=== PATIENT | male | born 1940 | race Caucasian/White ===

== ENCOUNTER 2019-01-03 07:20 | Outpatient (CLI) | payer MEDICARE, OTHER ==
[2019-01-03 07:41] LABS: BILIRUBIN,URINE NEGATIVE (NEGATIVE); GLUCOSE, URINE (UA) NEGATIVE (NEGATIVE); KETONES,URINE (UA) NEGATIVE (NEGATIVE); LEUKOCYTE ESTERASE, URINE NEGATIVE (NEGATIVE); NITRITE,URINE NEGATIVE (NEGATIVE); OCCULT BLOOD,URINE MODERATE (NEGATIVE); PH,URINE 5.5 PH (5.0-7.5); PROTEIN,URINE NEGATIVE (NEGATIVE); UROBILINOGEN,URINE 0.2 (NORMAL) E.U./dL (NORMAL)
[2019-01-03 07:43] LABS: BASOPHILS % (AUTO) 0.5 %; EOSINOPHILS # (AUTO) 0.4 10^3/uL (0.0-0.7); EOSINOPHILS % (AUTO) 7.7 %; HGB - HEMOGLOBIN 14.3 g/dL (14.0-18.0); LYMPHOCYTES % (AUTO) 18.6 %; MEAN CORPUSCULAR HEMOGLOBIN 31.4 pg (27.0-31.0); MEAN CORPUSCULAR HGB CONC 31.6 g/dL (32.0-36.0); MEAN CORPUSCULAR VOLUME 99.3 fL (80.0-94.0); MEAN PLATELET VOLUME 9.3 fL (7.4-11.4); MONOCYTES # (AUTO) 0.6 10^3/uL (0.0-1.0); MONOCYTES % (AUTO) 10.4 %; NEUTROPHILS # (AUTO) 3.4 10^3/uL (1.5-6.6); NEUTROPHILS % (AUTO) 62.3 %; PLT - PLATELET COUNT 190 10^3/uL (130-450); RED BLOOD COUNT 4.55 10^6/uL (4.70-6.10); RED CELL DISTRIBUTION WIDTH 12.7 % (12.0-15.0); WHITE BLOOD COUNT 5.5 x10^3/uL (4.8-10.8)
[2019-01-03 07:45] LABS: CLARITY,URINE CLEAR (CLEAR)
[2019-01-03 07:50] LABS: BACTERIA,URINE Rare /HPF (None Seen); RBC,URINE 0-5 /HPF (0-5); SQUAMOUS EPITHELIAL CELL,UR RARE Squamous (<= Few)
[2019-01-03 08:11] LABS: ALBUMIN 4.4 g/dL (3.2-5.5); ALBUMIN/GLOBULIN RATIO 1.5 (1.0-2.2); CALCIUM 9.3 mg/dL (8.5-10.3); CREATININE 0.8 mg/dL (0.6-1.2); TOTAL PROTEIN 7.4 g/dL (6.7-8.2)
== END 2019-01-03 07:21 | disposition home or self-care (01) ==
LOC: LAB 07:20
PROVIDERS: ATTEND Internal Medicine Gastroenterology
DX: I10 Essential (primary) hypertension (principal); I25.10 Atherosclerotic heart disease of native coronary artery without angina pectoris; N40.1 Benign prostatic hyperplasia with lower urinary tract symptoms; N13.8 Other obstructive and reflux uropathy
CPT/HCPCS: 36415; 80053; 81001; 85025

== ENCOUNTER 2019-01-09 10:23 | Day surgery (SDC) | payer MEDICARE, OTHER ==
[~2019-01-09 10:23] MED LIST: CEFAZOLIN SODIUM IN 0.9 % NACL 2 GM/100 ML BAG IV ONE
[2019-01-09] MEDS ORDERED: ceFAZolin 1 GM VIAL ONE (11:02)
[2019-01-09] MEDS ORDERED: BUPIVACAINE 0.5%-EPI 1:200000 PF 10 ML VIAL ONE (11:02)
[2019-01-09] MEDS ORDERED: LIDOCAINE 1% 50 ML MDV ONE (11:02)
--- NOTE | 2019-01-09 11:02 | ANESTHESIA ---
Pre-Anesthesia VS, & Labs - Diagnosis right inguinal hernia repair - Procedure right open inguinal hernia repair with mesh Vital Signs: Temp Pulse Resp BP Pulse Ox 36.3 C L 75 18 153/90 H 98 01/09/19 10:49 01/09/19 10:49 01/09/19 10:49 01/09/19 10:49 01/09/19 10:49 Height 5 ft 11 in Weight (kg) 69 kg Body Mass Index 21.5 - NPO >8 hours Home Medications and Allergies Home Medications: Ambulatory Orders Acetaminophen [Tylenol Arthritis] 650 mg PO QPM 01/03/19 Carvedilol 6.25 mg PO BID 01/03/19 Fluticasone Propionate [Flovent Diskus] 50 mcg IH ONCE PRN 01/03/19 Furosemide 10 mg PO DAILY 01/03/19 Rosuvastatin Calcium 10 mg PO DAILY 01/03/19 Temazepam 15 mg PO QPM PRN 01/03/19 Ubidecarenone/Vit E Acetate [Co Q-10 100 mg Softgel] 1 each PO DAILY 01/03/19 oxyCODONE [Roxicodone] 5 mg PO Q4-6H PRN 01/03/19 Atenolol [Tenormin] 25 mg PO DAILY 11/05/13 Finasteride 5 mg PO DAILY 11/05/13 Tamsulosin [Flomax] 0.4 mg PO DAILY 11/05/13 Aspirin [Adult Low Dose Aspirin EC] 81 mg PO DAILY 07/24/15 Lisinopril 2.5 mg PO DAILY 09/09/15 Acetaminophen [Tylenol Arthritis] 650 mg PO QPM 01/03/19 Carvedilol 6.25 mg PO BID 01/03/19 Fluticasone Propionate [Flovent Diskus] 50 mcg IH ONCE PRN 01/03/19 Furosemide 10 mg PO DAILY 01/03/19 Rosuvastatin Calcium 10 mg PO DAILY 01/03/19 Temazepam 15 mg PO QPM PRN 01/03/19 Ubidecarenone/Vit E Acetate [Co Q-10 100 mg Softgel] 1 each PO DAILY 01/03/19 oxyCODONE [Roxicodone] 5 mg PO Q4-6H PRN 01/03/19 Allergies/Adverse Reactions: Allergies Allergy/AdvReac Type Severity Reaction Status Date / Time oxycodone AdvReac Mild Itching Verified 01/03/19 07:13 hydrocodone bitartrate * AdvReac Itching Verified 01/03/19 07:13 [From Vicodin] Anes History & Medical History - Anesthetic History Anesthesia Complications: reports: No previous complications - Medical History Cardiovascular: reports: Hypertension, High cholesterol, [place] Pulmonary: reports: COPD, Shortness of breath Gastrointestinal: reports: GERD, GI bleed, Colon polyps, Other Urinary: reports: Benign prostate hypertrophy, Nocturia Neuro: reports: Other (post polio syndrome) Musculoskeletal: reports: Osteoarthritis, Chronic back pain Endocrine/Autoimmune: reports: None Blood Disorders: reports: Anemia Skin: reports: None Smoking Status: Former smoker - Surgical History General: Colonoscopy, EGD, Other Eyes Ears Nose Throat (EENT): Tonsil/Adenoidectomy, Other Cardiothoracic: Coronary stent Orthopedic: Other Exam General: Alert Dental: Poor dentition Mouth Opening: Greater than 4 Fingerbreadths Mallampati classification: II Respiratory: Lungs clear Cardiovascular: Regular rate, Normal S1, Normal S2 Plan Anesthesia Type: Total IV Consent for Procedure(s) Verified and Reviewed: Yes Code Status: Attempt Resuscitation ASA classification: 3-Severe systemic disease Is this case an emergency?: Yes
[2019-01-09] MEDS ORDERED: LACTATED RINGERS 1,000 ML IV ONE ×2 (11:07→13:53)
[2019-01-09] MEDS ORDERED: MIDAZOLAM 2 MG/2 ML VIAL IVP ONE (11:13)
[2019-01-09] MEDS ORDERED: PROPOFOL 200 MG/20 ML VIAL IVP ONE (11:13)
[2019-01-09] MEDS ORDERED: fentaNYL 100 MCG/2 ML VIAL IVP ONE (11:13)
[2019-01-09] MEDS ORDERED: KETAMINE 500 MG/10 ML VIAL IVP ONE (11:13)
[2019-01-09] MEDS ORDERED: LIDOCAINE-MPF 2% 5 ML VIAL IM ONE (11:13)
[2019-01-09] MEDS ORDERED: ACETAMINOPHEN 325 MG TABLET PO PRN (13:13)
[2019-01-09] MEDS ORDERED: IBUPROFEN 600 MG TABLET PO PRN (13:13)
[2019-01-09] MEDS ORDERED: ONDANSETRON 4 MG/2 ML VIAL IVP PRN (13:13)
[2019-01-09] MEDS ORDERED: oxyCODONE 5 MG TABLET PO PRN (13:13)
[2019-01-09] MEDS ORDERED: ACETAMINOPHEN 1,000 MG/100 ML 100 ML IV ONE ×2 (13:17→13:35)
[2019-01-09] MEDS ORDERED: oxyCODONE 5 MG TABLET ONE (13:40)
[2019-01-09 13:56] VITALS: BP 131/88
--- NOTE | 2019-01-09 16:32 | OPERATIVE REPORT ---
DATE OF SERVICE: 01/09/2019 Physician: Phu Branham MD PREOPERATIVE DIAGNOSIS: Symptomatic recurrent right inguinal hernia. POSTOPERATIVE DIAGNOSIS: Symptomatic recurrent right inguinal hernia, indirect. PROCEDURE PERFORMED: Open repair of symptomatic recurrent right inguinal hernia with polypropylene m esh. ANESTHESIA: Local plus monitored anesthesia care by Sly Crook CRNA. SURGEON: Phu Branham MD ESTIMATED BLOOD LOSS: 25 mL COMPLICATIONS: None. FINDINGS: A large recurrent indirect right inguinal hernia was identified. There was no evidence of direct or femoral hernia. A Covidien plug and patch polypropylene mesh was used for the reconstruct ion. INDICATIONS: Patient is a 78-year-old gentleman with an increasingly painful and enlarging right cristi in bulge. He has a remote history of prior open right inguinal hernia repair with mesh. Examination revealed a large reducible and recurrent right inguinal hernia. Because of multiple medical comorbi dities, he was advised to undergo repair of his recurrent right inguinal hernia using local anesthesi a plus monitored anesthesia care. TECHNIQUE: After informed consent, the patient was taken to the operating room where he was sedated and monitored. Preoperative preparation included administration of 2 grams cefazolin intravenously w ithin an hour of the incision and application of sequential calf compression boots. His right groin had been clipped in the ASU and was prepared with iodoform solution, following which a right groin bl ock was instituted using a 50:50 combination of 1% lidocaine plain and 0.5% Marcaine with epinephrine . A total of 30 mL of the mixture was used. The patient's right groin was re-prepared with ChloraPr ep solution and draped in the usual sterile fashion. The patient's previous right inguinal herniorrh aphy surgical scar was reopened by making a transverse incision in the skin lines, beginning just abo ve the pubic tubercle and extending laterally approximately 5 cm. Hemostasis achieved with electroca utery and 2-0 silk ties. Incision carried down through subcutaneous tissues until the external obliq ue aponeurosis was identified and exposed, identifying the external ring. The external oblique apone urosis was then incised along the lines of its fibers in such a manner as to open the external ring a nd expose the internal ring. Extensive scarring was present within the inguinal canal. The cord str uctures were mobilized and encircled with a Christiano drain. The ilioinguinal nerve was not clearly id entified during the dissection. The large hernia sac was identified and was dissected free from surr ounding cord structures to the level of the internal ring. The hernia sac was opened and a finger in serted in the peritoneal cavity. A search for direct and femoral hernias made and none was identifie d. The sac was twisted and triply highly ligated with 2-0 silk suture ligatures. Excess hernia sac was amputated and discarded. After hemostasis was assured and the wound irrigated with antibiotic so lution containing 1 gram of Ancef per liter, A [employer] polypropylene plug and patch system was broug ht onto the field, soaked in the antibiotic solution. The plug was placed into the internal ring and secured in place with interrupted 3-0 Prolene sutures. The patch was then placed over the inguinal floor. The tail was wrapped around the cord at the level of the internal ring and was secured in michele ce with continuous 3-0 Prolene sutures, securing the patch to the shelving edge of Poupart's ligament inferiorly, to the internal oblique aponeurosis superolaterally and to the lateral border of the rec tus sheath medially. Care was taken to avoid excessive tightening of the patch around the cord struc tures at the level of the internal ring. Again, after hemostasis had been assured, the wound was irr igated with antibiotic solution, following which wound closure was accomplished in layers using gerson nuous 2-0 Vicryl, reapproximated the external oblique aponeurosis overlying the cord, followed by 3-0 Vicryl for Terry's fascia and 4-0 Monocryl for subcuticular skin closure, followed by Dermabond. T he procedure was then terminated. The patient was transferred out of the operating room in satisfact ory condition. Sponge and needle counts were correct x2. No drains were used. cc: Raúl Hoang DO TD: 01/09/2019 13:30
== END 2019-01-09 10:24 | disposition home or self-care (01) ==
LOC: SDS 10:23
PROVIDERS: ATTEND Internal Medicine Gastroenterology
PROC: 0YU50JZ Supplement Right Inguinal Region with Synthetic Substitute, Open Approach (ICD-10-PCS; principal; 2019-01-09 12:00)
DX: K40.91 Unilateral inguinal hernia, without obstruction or gangrene, recurrent (principal); I11.0 Hypertensive heart disease with heart failure; I50.9 Heart failure, unspecified; I25.10 Atherosclerotic heart disease of native coronary artery without angina pectoris; N40.1 Benign prostatic hyperplasia with lower urinary tract symptoms; N13.8 Other obstructive and reflux uropathy; M54.5 Low back pain; G89.29 Other chronic pain; J44.9 Chronic obstructive pulmonary disease, unspecified; I25.2 Old myocardial infarction; Z95.5 Presence of coronary angioplasty implant and graft; Z79.891 Long term (current) use of opiate analgesic; Z79.899 Other long term (current) drug therapy; Z86.010 Personal history of colon polyps; Z79.82 Long term (current) use of aspirin; Z87.891 Personal history of nicotine dependence; Z79.51 Long term (current) use of inhaled steroids
CPT/HCPCS: 49520; A9270; C1781; J0131; J0690; J7120

== ENCOUNTER 2019-03-29 07:42 | Outpatient (CLI) | payer MEDICARE, OTHER ==
[2019-03-29 08:17] LABS: ALBUMIN 4.7 g/dL (3.2-5.5); ALKALINE PHOSPHATASE 76 IU/L (42-121); ALT ALANINE AMINOTRANSFERASE 24 IU/L (10-60); AST ASPARTATE AMINOTRANSFERASE 22 IU/L (10-42); BILIRUBIN,DIRECT 0.1 mg/dL (0.1-0.5); BILIRUBIN,TOTAL 0.9 mg/dL (0.2-1.0); CHOL/HDL RATIO 2.5 (<5.0); CHOLESTEROL 171 mg/dL; HDL CHOLESTEROL 69 mg/dL; LDL CHOLESTEROL,CALCULATED 83 mg/dL; LDL/HDL RATIO 1.2 (<3.6); TOTAL PROTEIN 7.6 g/dL (6.7-8.2); VLDL CHOLESTEROL 19 mg/dL
== END 2019-03-29 07:43 | disposition home or self-care (01) ==
LOC: LAB 07:42
PROVIDERS: ATTEND Internal Medicine Cardiovascular Disease
DX: Z79.899 Other long term (current) drug therapy (principal)
CPT/HCPCS: 36415; 80061; 80076; 83721

== ENCOUNTER 2020-10-03 10:07 | Outpatient (CLI) | payer MEDICARE ==
[2020-10-03 10:46] LABS: ALBUMIN 4.5 g/dL (3.2-5.5); ALBUMIN/GLOBULIN RATIO 1.6 (1.0-2.2); ALKALINE PHOSPHATASE 60 IU/L (42-121); ALT ALANINE AMINOTRANSFERASE 45 IU/L (10-60); AST ASPARTATE AMINOTRANSFERASE 35 IU/L (10-42); BUN - BLOOD UREA NITROGEN 42 mg/dL (6-20); CALCIUM 8.9 mg/dL (8.5-10.3); CARBON DIOXIDE - CO2 26 mmol/L (21-32); CHLORIDE 103 mmol/L (101-111); CHOL/HDL RATIO 2.4 (<5.0); CHOLESTEROL 147 mg/dL; GFR - MDRD 72 (>89); GLUCOSE 121 mg/dL (70-100); HDL CHOLESTEROL 62 mg/dL; LDL CHOLESTEROL,CALCULATED 71 mg/dL; LDL/HDL RATIO 1.1 (<3.6); SODIUM 137 mmol/L (135-145); TOTAL PROTEIN 7.4 g/dL (6.7-8.2); TRIGLYCERIDES 69 mg/dL; VLDL CHOLESTEROL 14 mg/dL
== END 2020-10-03 10:08 | disposition home or self-care (01) ==
LOC: LAB 10:07
PROVIDERS: ATTEND Internal Medicine Cardiovascular Disease
DX: Z79.899 Other long term (current) drug therapy (principal)
CPT/HCPCS: 36415; 80053; 80061; 83721

== ENCOUNTER 2021-01-04 20:00 | Outpatient (CLI) | payer MEDICARE | END 2021-01-04 20:01 | disposition EMS.NT | LOC: EMS 20:00 | DX: R39.89 Other symptoms and signs involving the genitourinary system (principal) ==

== ENCOUNTER 2021-01-04 23:09 | Outpatient (CLI) | payer MEDICARE | END 2021-01-04 23:10 | disposition critical access hospital (66) | LOC: EMS 23:09 | DX: R39.89 Other symptoms and signs involving the genitourinary system (principal) | CPT/HCPCS: A0425; A0429 ==

== ENCOUNTER 2021-01-04 23:35 | Emergency (ER) | payer MEDICARE ==
[2021-01-05 00:01] LABS: BILIRUBIN,URINE NEGATIVE (NEGATIVE); GLUCOSE, URINE (UA) NEGATIVE (NEGATIVE); KETONES,URINE (UA) NEGATIVE (NEGATIVE); LEUKOCYTE ESTERASE, URINE NEGATIVE (NEGATIVE); NITRITE,URINE NEGATIVE (NEGATIVE); OCCULT BLOOD,URINE LARGE (NEGATIVE); PROTEIN,URINE TRACE mg/dL (NEGATIVE); UROBILINOGEN,URINE 0.2 (NORMAL) E.U./dL (NORMAL)
[2021-01-05 00:02] LABS: CLARITY,URINE CLEAR (CLEAR)
[2021-01-05 00:07] LABS: BACTERIA,URINE None Seen /HPF (None Seen); SQUAMOUS EPITHELIAL CELL,UR NONE SEEN (<= Few); WBC,URINE 0-3 /HPF (0-3)
--- NOTE | 2021-01-05 00:12 | ED Physician Documentation ---
PD HPI MALE - Stated complaint Stated Complaint: MALE - Chief complaint Chief Complaint: Abd Pain - History obtained from History obtained from: Patient - History of Present Illness Timing - onset: Today Timing - duration: Hours Timing - details: Gradual onset, Still present Associated symptoms: Unable to urinate Similar symptoms before: Diagnosis (acute urniary retention) Recently seen: Not recently seen - Additional information Additional information: 81-year-old male with a prior history of acute urinary retention has developed acute urinary retention again and he denies having missed any doses of his Flomax. He does not feel that he has been ill recently otherwise. He does get some nausea periodically and this seems to be associated with stressful events. He does use cannabis he does use more cannabis when he is stressed. He has been in to see multiple physicians for this nausea that he has periodically and he has had endoscopy he has never had a diagnosis. He has not had successful treatment of the nausea. Review of Systems Constitutional: denies: Fever Eyes: denies: Decreased vision Ears: denies: Ear pain Nose: denies: Rhinorrhea / runny nose, Congestion Throat: denies: Sore throat Cardiac: denies: Chest pain / pressure, Palpitations Respiratory: denies: Dyspnea, Cough GI: reports: Abdominal Pain, Nausea. denies: Vomiting, Constipation, Diarrhea : reports: Unable to Void. denies: Dysuria, Frequency Skin: denies: Rash Musculoskeletal: denies: Neck pain, Back pain, Extremity pain PD PAST MEDICAL HISTORY - Past Medical History Cardiovascular: Hypertension, High cholesterol, [place] Respiratory: COPD, Shortness of breath Neuro: Other (post polio syndrome) Endocrine/Autoimmune: None GI: GERD, GI bleed, Colon polyps, Other : Benign prostate hypertrophy, Nocturia HEENT: Chronic vision loss, Glaucoma, Chronic hearing loss Psych: Depression, Anxiety, Claustrophobia Musculoskeletal: Osteoarthritis, Chronic back pain Derm: None - Past Surgical History Past Surgical History: Yes General: Colonoscopy, EGD, Other Ortho: Other Cardiovascular: Coronary stent HEENT: Tonsil/Adenoidectomy, Other - Present Medications Home Medications: Ambulatory Orders Medication Instructions Recorded Confirmed Finasteride 5 mg PO DAILY 11/05/13 01/03/19 Tamsulosin [Flomax] 0.4 mg PO DAILY 11/05/13 01/03/19 atenoloL [Tenormin] 25 mg PO DAILY 11/05/13 01/09/19 Aspirin [Adult Low Dose Aspirin EC] 81 mg PO DAILY 07/24/15 01/03/19 lisinopriL [Lisinopril] 2.5 mg PO DAILY 09/09/15 01/03/19 Acetaminophen [Tylenol Arthritis] 650 mg PO QPM 01/03/19 01/09/19 Carvedilol 6.25 mg PO BID 01/03/19 01/09/19 Fluticasone Propionate [Flovent 50 mcg IH ONCE PRN 01/03/19 01/03/19 Diskus] Furosemide 10 mg PO DAILY 01/03/19 01/09/19 Rosuvastatin Calcium 10 mg PO DAILY 01/03/19 01/09/19 Temazepam 15 mg PO QPM PRN 01/03/19 01/03/19 Ubidecarenone/Vit E Acet [Co Q-10 1 each PO DAILY 01/03/19 01/03/19 100 mg Softgel] oxyCODONE [Roxicodone] 5 mg PO Q4-6H PRN 01/03/19 01/09/19 oxyCODONE [Roxicodone] 5 mg PO Q6H PRN #30 tablet 01/09/19 - Allergies Allergies/Adverse Reactions: Allergies Allergy/AdvReac Type Severity Reaction Status Date / Time oxycodone AdvReac Mild Itching Verified 01/03/19 07:13 hydrocodone bitartrate * AdvReac Itching Verified 01/03/19 07:13 [From Vicodin] - Social History Does the pt smoke?: No Smoking Status: Former smoker Does the pt drink ETOH?: No Does the pt have substance abuse?: Yes - Immunizations Immunizations are current?: Yes - POLST Patient has POLST: No PD ED PE NORMAL - Vitals Vital signs reviewed: Yes (Tachycardic and hypertensive marked) - General General: Alert and oriented X 3, No acute distress, Well developed/nourished - HEENT HEENT: Atraumatic, PERRL, EOMI - Neck Neck: Supple, no meningeal sign - Respiratory Respiratory: No respiratory distress - Abdomen Abdomen: Normal bowel sounds, Soft, Other (The bladder is firm distended and tender.) - Back Back: No CVA TTP, No spinal TTP - Derm Derm: Normal color, Warm and dry, No rash - Extremities Extremities: No deformity, No calf tenderness / cord - Neuro Neuro: Alert and oriented X 3, screen repairer crusher 2-12 intact, No motor deficit, No sensory deficit, Normal speech Eye Opening: Spontaneous Motor: Obeys Commands Verbal: Oriented GCS Score: 15 - Psych Psych: Normal mood, Normal affect Results - Vitals Vitals: Vital Signs - 24 hr 01/04/21 01/05/21 23:42 00:15 Temperature 36.6 C Heart Rate 104 H 99 Respiratory 18 18 Rate Blood Pressure 199/125 H 186/110 H O2 Saturation 94 97 Oxygen O2 Source Room air - Labs Labs: Laboratory Tests 01/04/21 23:56 Urine Color YELLOW Urine Clarity CLEAR Urine pH 5.0 Ur Specific Bowman 1.015 Urine Protein TRACE Urine Glucose (UA) NEGATIVE Urine Ketones NEGATIVE Urine Occult Blood LARGE H Urine Nitrite NEGATIVE Urine Bilirubin NEGATIVE Urine Urobilinogen 0.2 (NORMAL) Ur Leukocyte Esterase NEGATIVE Urine RBC 6-10 H Urine WBC 0-3 Ur Squamous Epith Cells NONE SEEN Urine Bacteria None Seen Ur Microscopic Review INDICATED Urine Culture Comments NOT INDICATED PD MEDICAL DECISION MAKING - ED course Complexity details: reviewed old records, reviewed results, re-evaluated patient, considered differential, d/w patient ED course: 81-year-old male with a prior history of urinary retention has developed urinary retention acutely again and a Bear catheter is placed with drainage of 800 1800 mL. Patient has relief of his symptoms. The urine looks clear. No evidence of infection. I have discussed the case with the patient and indicated to him that he should have the catheter in place for at least 7 to 10 days and he will need to follow-up with his primary at [facility] for voiding trial. I have asked patient return to the emergency department or follow-up with his primary immediately should he develop cloudy urine or new symptoms. He does have a symptoms of nausea periodically and I have discussed with the patient the possibility of cannabis hyperemesis. Departure - Departure Disposition: 01 Home, Self Care Clinical Impression: Urinary retention Condition: Stable Instructions: ED Retention Urinary Male, ED Catheter Care Bear Follow-Up: Jeffrey Edwards MD [Primary Care Provider] - Comments: You will need to leave the catheter in place for at least 7 to 10 days. Follow-up with your primary care doctor for a voiding trial in 1-2 weeks.
[2021-01-05 02:50] VITALS: BP 137/80
== END 2021-01-05 01:35 | disposition home or self-care (01) ==
LOC: EDUNIT# → SUPCPDRO 23:35 → ED 23:35
DX: R33.9 Retention of urine, unspecified (principal); R11.0 Nausea; Z87.891 Personal history of nicotine dependence
CPT/HCPCS: 51702; 81001; 81003; 87086; 99282; 99283

== ENCOUNTER 2021-08-14 07:13 | Outpatient (CLI) | payer MEDICARE ==
--- NOTE | 2021-08-14 08:59 | XRAY Report ---
PROCEDURE: Lumbar Spine 2 View INDICATIONS: EX SMOKER, CHRONIC BACK PAIN TECHNIQUE: 2 views of the lumbar spine were acquired. COMPARISON: None. FINDINGS: Bones: 5 [id number] vertebrae are present. There is straightening of normal lumbar lordosis. M ild to moderate rightward curvature of lumbar spine centered at L3-4 level is seen. Degenerative endp late changes and bilateral facet arthrosis throughout lumbar spine is seen. No vertebral body rafiq angelica fractures. No suspicious bony lesions. Soft tissues: Overlying bowel gas pattern is normal. No suspicious soft tissue calcifications. 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 No acute compression fractur e or spondylolisthesis. Scoliosis as above. Reviewed by: Ajay Morrison MD on 08/14/2021 8:57 AM PDT Approved by: Ajay Morrison MD on 08/14/2021 8:57 AM PDT Station ID: [id number]
--- NOTE | 2021-08-14 09:08 | XRAY Report ---
PROCEDURE: Thoracic Spine 2 View INDICATIONS: EX SMOKER, CHRONIC BACK PAIN TECHNIQUE: 2 views of the thoracic spine were acquired. COMPARISON: None. FINDINGS: Bones: No fractures or dislocations. Mild to moderate levoscoliosis of lower thoracic spine/thoraco lumbar junction centered at T11-T12 level is seen. Degenerative endplate changes throughout lumbar sp ine is noted. No suspicious bony lesions. 12 pairs of ribs are noted, and appear intact where visual ized. Soft tissues: No paravertebral stripe thickening. 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 No acute compression fracture or spondylo listhesis. Mild to moderate levoscoliosis as above. Reviewed by: Ajay Morrison MD on 08/14/2021 9:07 AM PDT Approved by: Ajay Morrison MD on 08/14/2021 9:07 AM PDT Station ID: [id number]
--- NOTE | 2021-08-14 13:11 | CT Report ---
PROCEDURE: Low Dose Lung Cancer Screen INDICATIONS: EX SMOKER, CHRONIC BACK PAIN TECHNIQUE: Noncontrast low-dose images were acquired from the pulmonary apices to the posterior costophrenic ang les. Multiplanar MIP reformats were then acquired. For radiation dose reduction, the following was used: automated exposure control, adjustment of mA and/or kV according to patient size. COMPARISON: None. FINDINGS: Image quality: Excellent. Lungs and pleura: 2 mm solid nodule is seen in anterolateral right upper lobe series 4 image 66. 5.5 mm solid nodule is seen in posterior medial left lower lobe series 4 image 153. 2 mm groundglass density nodule within lateral periphery of left upper lobe series 4 image 125 5 mm solid nodule in anterior aspect of left upper lobe series 4 image 163. 4 x 2 mm solid nodule is seen in anterior left lingular segment series 4 image 2:15. Single pneumatics cyst is seen in central portion of right upper lobe and measures 2.3 cm in size ser ies 4 image 121. Atelectasis in posterior and medial aspect of bilateral lower lung cloud are seen. No pleural effusion or pneumothorax. Airways patent. Mediastinum: Heart size is mildly enlarged. No pericardial effusion. No mediastinal adenopathy by size criteria. Thoracic aorta is normal in size. Moderate atherosclerotic calcifications and coronary vessels and thoracic aorta is seen. Enlarged pulmonary artery is seen measures up to 3.[address] which can be seen associated with pulmonary vascular hypertension. Esophagus is normal in caliber . No hiatal hernia. Bones and chest wall: No suspicious bony lesions. No vertebral body compression fractures. No axil tammi or supraclavicular adenopathy by size criteria. The thyroid is normal in size and there are no incidental findings. Abdomen: Well circumscribed hypodensity involving right hepatic lobe posterior to gallbladder fossa m easures 1.9 x 1.6 cm in size and likely represent hepatic cyst. Series 3 image 73. IMPRESSION: 1. Multiple small solid and groundglass density nodule seen in bilateral lung cloud as described abo ve and measures up to 5.5 mm in left lower lobe. 2. Pneumatic cyst seen in the right upper lobe. Bibasilar scarring/atelectasis. 3. No mediastinal or hilar lymphadenopathy. Prominent size of main pulmonary artery which can be seen associated with pulmonary vascular hypertension. Moderate atherosclerotic disease. 4. Possible cyst in right hepatic lobe as above. Lung RADS category: 2, benign findings. Annual low dose screening CT chest follow-up is recommended i f clinically indicated. CLINICAL RECOMMENDATION STATEMENTS: In patients <35 years with an ITN detected on CT, MRI, or extrathyroidal ultrasound, the Committee re commends further evaluation with dedicated thyroid ultrasound if the nodule is "e1 cm and has no susp icious imaging features, and if the patient has normal life expectancy. In patients "e35 years with an ITN detected on CT, MRI, or extrathyroidal ultrasound, the Committee r ecommends further evaluation with dedicated thyroid ultrasound if the nodule is "e1.5 cm and has no s uspicious imaging features, and if the patient has normal life expectancy. (ACR, 2014) Reviewed by: Ajay Morrison MD on 08/14/2021 1:09 PM PDT Approved by: Ajay Morrison MD on 08/14/2021 1:09 PM PDT Station ID: [id number]
== END 2021-08-14 07:14 | disposition home or self-care (01) ==
LOC: DI 07:13
PROVIDERS: ATTEND Nurse Practitioner Family
DX: Z12.2 Encounter for screening for malignant neoplasm of respiratory organs (principal); Z87.891 Personal history of nicotine dependence; R91.8 Other nonspecific abnormal finding of lung field; J98.4 Other disorders of lung; R93.2 Abnormal findings on diagnostic imaging of liver and biliary tract; I70.0 Atherosclerosis of aorta; I25.10 Atherosclerotic heart disease of native coronary artery without angina pectoris; J98.11 Atelectasis; I28.8 Other diseases of pulmonary vessels; M47.816 Spondylosis without myelopathy or radiculopathy, lumbar region; M51.36 Other intervertebral disc degeneration, lumbar region; M51.34 Other intervertebral disc degeneration, thoracic region

== ENCOUNTER 2022-12-10 07:29 | Day surgery (SDC) | payer MEDICARE ==
[~2022-12-10 07:29] MED LIST changes: -CEFAZOLIN SODIUM IN 0.9 % NACL 2 GM/100 ML BAG IV ONE; +KETOROLAC 0.45% OPHTH DROPS ONE; +PILOCARPINE 1% OPHTH DROPS ONE
[2022-12-10] MEDS ORDERED: LACTATED RINGERS 1,000 ML IV ONE (08:00)
[2022-12-10 08:16] VITALS: O2SAT 100
[2022-12-10] MEDS ORDERED: MIDAZOLAM 2 MG/2 ML VIAL ONE (08:58)
[2022-12-10] MEDS ORDERED: fentaNYL 100 MCG/2 ML VIAL ONE (08:59)
--- NOTE | 2022-12-10 09:07 | ANESTHESIA ---
Pre-Anesthesia VS, & Labs - Diagnosis right lens dislocation - Procedure left lens replacement Vital Signs: Temp Pulse Resp BP Pulse Ox O2 Flow Rate 36.2 C L 73 17 165/102 H 100 0 12/10/22 08:02 12/10/22 08:02 12/10/22 08:02 12/10/22 08:02 12/10/22 08:02 12/10/22 08:02 Height: 5 ft 11 in Weight (kg): 66.7 kg Body Mass Index: 20.5 BMI Classification: Normal - NPO >8 hours Home Medications and Allergies Finasteride 5 mg PO DAILY 11/05/13 Tamsulosin [Flomax] 0.4 mg PO DAILY 11/05/13 atenoloL [Tenormin] 25 mg PO DAILY 11/05/13 Aspirin [Adult Low Dose Aspirin EC] 81 mg PO DAILY 07/24/15 lisinopriL [Lisinopril] 2.5 mg PO DAILY 09/09/15 Acetaminophen [Tylenol Arthritis] 650 mg PO QPM 01/03/19 Carvedilol 6.25 mg PO BID 01/03/19 Fluticasone Propionate [Flovent Diskus] 50 mcg IH ONCE PRN 01/03/19 Furosemide 10 mg PO DAILY 01/03/19 Rosuvastatin Calcium 10 mg PO DAILY 01/03/19 Temazepam 15 mg PO QPM PRN 01/03/19 Ubidecarenone/Vit E Acet [Co Q-10 100 mg Softgel] 1 each PO DAILY 01/03/19 oxyCODONE [Roxicodone] 5 mg PO Q4-6H PRN 01/03/19 Allergies/Adverse Reactions: Allergies Allergy/AdvReac Type Severity Reaction Status Date / Time oxycodone AdvReac Mild Itching Verified 01/03/19 07:13 hydrocodone bitartrate * AdvReac Itching Verified 01/03/19 07:13 [From Vicodin] Anes History & Medical History - Medical History Cardiovascular: reports: Hypertension, High cholesterol, [place] Pulmonary: reports: COPD, Shortness of breath Gastrointestinal: reports: GERD, GI bleed, Colon polyps, Other Urinary: reports: Benign prostate hypertrophy, Nocturia Neuro: reports: Other (post polio syndrome) Musculoskeletal: reports: Osteoarthritis, Chronic back pain Endocrine/Autoimmune: reports: None Blood Disorders: reports: Anemia Skin: reports: None Smoking Status: Former smoker Psychosocial: reports: Cannabis - Surgical History General: reports: Colonoscopy, EGD, Other Eyes Ears Nose Throat (EENT): reports: Tonsil/Adenoidectomy, Other Cardiothoracic: reports: Coronary stent Orthopedic: reports: Other Exam General: Alert, Oriented x3 Dental: WNL Mouth Opening: Greater than 4 Fingerbreadths Neck Mobility: Normal Thyromental Distance: greater than 6 cm Respiratory: Lungs clear Cardiovascular: Regular rate Plan Anesthesia Type: MAC Consent for Procedure(s) Verified and Reviewed: Yes Code Status: Attempt Resuscitation ASA classification: 3-Severe systemic disease Is this case an emergency?: No
[2022-12-10] MEDS ORDERED: TIMOLOL 0.5% OPHTH DROPS ONE (09:08)
[2022-12-10] MEDS ORDERED: TRIAMCIN/MOXIFLOX OPHTHALMIC 0.6 ML VIAL IO ONE ×2 (09:08→09:30)
[2022-12-10] MEDS ORDERED: BSS/LIDOCAINE/EPINEPHRINE 1 ML VIAL ONE (09:08)
[2022-12-10] MEDS ORDERED: EPINEPHrine 1 MG/ML AMP ONE (09:08)
[2022-12-10] MEDS ORDERED: BRIMONIDINE 0.2% OPHTH DROPS 5 ML ONE (09:08)
[2022-12-10] MEDS ORDERED: ACETYLCHOLINE 20 MG/2 ML KIT IO ONE ×2 (09:09→09:34)
[2022-12-10] MEDS ORDERED: BRIMONIDINE 0.2% OPHTH DROPS 5 ML OPTH ONE (09:29)
[2022-12-10] MEDS ORDERED: EPINEPHrine 1 MG/ML AMP IR ONE (09:30)
[2022-12-10] MEDS ORDERED: TIMOLOL 0.5% OPHTH DROPS OPTH ONE (09:30)
[2022-12-10] MEDS ORDERED: PROPARACAINE 0.5% OPHTH DROPS 15 ML EACHEYE ONE (09:30)
[2022-12-10] MEDS ORDERED: BSS/LIDOCAINE/EPINEPHRINE 1 ML SYRINGE IO ONE (09:30)
[2022-12-10] MEDS ORDERED: VANCOMYCIN OPHTH (TOPICAL) 10 MG/ML SYRINGE TOP ONE (09:31)
[2022-12-10] MEDS ORDERED: LACTATED RINGERS 800 ML IV ONE (09:50)
--- NOTE | 2022-12-10 10:04 | OPERATIVE REPORT ---
Operative Report - Other Other Information/Narrative: Date of Surgery: 12/10/22 Preop Dx: Dislocated IOL right eye. Cataract surgery was performed in the right eye at [facility]. Postop Dx: Same Procedure: Secondary anterior chamber lens implant right eye. Surgeon: Dr. Julio Renae Anesthesia: Monitored anesthesia care Complications: None Operative Indications: This is a 82-year-old M with sudden vision loss in the right eye due to posterior chamber IOL dislocation. The IOL was observed to be on the macula when the patient is supine and floats to the inferior retinal when his head is in the vertical position. Best corrected visual acuity was count finger vision at 1 foot the right eye. Indications for surgery were: - Overall decrease in vision - Difficulty seeing words on a computer screen - Difficulty reading - Difficulty seeing words, closed captions, or game scores on TV - Difficulty seeing street signs - Difficulty driving in low light or at night - Difficulty driving at night because of headlights from other vehicles - Difficulty with glare or bright lights in any situation The patient was consented at length concerning the risks and benefits of secondary IOL implantation. The patient expressed a desire to proceed with surgery. The plan is to see what the vision potential of the eye is following secondary IOL and, if good, send him to [facility] for possible IOL fragmentation and removal of the dislocated IOL residing in the posterior chamber. Operative Procedure: The patient was taken into OR#3 and placed under monitored anesthesia care. A surgical time-out was conducted confirming correct patient, correct procedure, and correct surgical site. The patient was given topical ane sthesia and then prepped and draped in the usual sterile fashion. The eye was entered at the 6 and 3 oclock positions. Intracameral Shugarcaine was injected into the anterior chamber followed by a dispersive viscoelastic. The temporal wound was enlarged to 6mm and a Sheetz glide placed though the would, across the anterior chamber, and the distal end into the nasal angle. A 14.0 diopter anterior chamber intraocular lens was inserted into the anterior chamber and the haptics tucked into the angles. Infusion and aspiration were used to evacuate the viscoelastic materials from the eye. The IOL optic kept wanting to tuck underneath the inferior pupil edge so Miochol was injected into the anterior chamber and the problem resolved. Three 10-0 nylon sutures were placed across the 6mm wound and the eye inflated to normal physiologic pressure. Approximately 0.25ml of a mixture of triamcinolone and moxifloxacin was injected trans-sclerally into the vitreous in the inferotemporal quadrant using a 30 gauge cannula. An additional 0.55ml of a mixture of triamcinolone and moxifloxacin was injected subconjunctivally in the superior quadrant for infection and inflammation prophylaxis. Wound integrity was checked with Weck- Chanelle sponges. The patient was taken from the operating room in good condition and given post-op instructions.
[2022-12-10 10:48] VITALS: BP 115/83
--- NOTE | 2022-12-10 11:07 | ANESTHESIA POST OP EVALUATION ---
Anesthesia Post Eval - Post Anesthesia Eval Vitals: Last Vital Signs Temp 36.7 C 12/10/22 10:20 Pulse 70 12/10/22 10:20 Resp 15 12/10/22 10:20 BP 115/83 H 12/10/22 10:20 Pulse Ox 100 12/10/22 10:20 O2 Flow Rate 0 12/10/22 08:02 CV Function Including HR & BP: Stable Pain Control: Satisfactory Nausea & Vomiting: Negative Mental Status: Baseline Respiratory Status: Airway Patent Hydration Status: Satisfactory Anesthesia Complications: None
== END 2022-12-10 07:30 | disposition home or self-care (01) ==
LOC: SDS 07:29
PROVIDERS: ATTEND Ophthalmology
DX: T85.22XA Displacement of intraocular lens, initial encounter (principal); Y83.2 Surgical operation with anastomosis, bypass or graft as the cause of abnormal reaction of the patient, or of later complication, without mention of misadventure at the time of the procedure; I10 Essential (primary) hypertension; J44.9 Chronic obstructive pulmonary disease, unspecified; Z87.891 Personal history of nicotine dependence
CPT/HCPCS: 66985; A9270; J7120

== ENCOUNTER 2023-12-06 11:45 | Outpatient (CLI) | payer MEDICARE | END 2023-12-06 11:46 | disposition home or self-care (01) | LOC: DI 11:45 | PROVIDERS: ATTEND Internal Medicine Cardiovascular Disease | DX: R06.09 Other forms of dyspnea (principal); R68.89 Other general symptoms and signs; I08.2 Rheumatic disorders of both aortic and tricuspid valves; I77.819 Aortic ectasia, unspecified site; I25.2 Old myocardial infarction; I10 Essential (primary) hypertension; J44.9 Chronic obstructive pulmonary disease, unspecified; E78.5 Hyperlipidemia, unspecified; Z95.5 Presence of coronary angioplasty implant and graft | CPT/HCPCS: 93307 ==